=== PATIENT | female | born 1950 | race Caucasian/White ===

== ENCOUNTER 2017-04-02 02:18 | Inpatient (IN) ==
[2017-04-02] MEDS ORDERED: HYDROmorphone 2 MG/1 ML VIAL IV STA (03:00)
[2017-04-02] MEDS ORDERED: ONDANSETRON 4 MG/2 ML VIAL IV STA (03:00)
[2017-04-02] MEDS ORDERED: KETOROLAC 30 MG/1 ML VIAL IV STA (03:00)
[2017-04-02] MEDS ORDERED: ONDANSETRON 4 MG/2 ML VIAL ONE (03:13)
[2017-04-02] MEDS ORDERED: HYDROmorphone 2 MG/1 ML VIAL ONE (03:14)
[2017-04-02] MEDS ORDERED: KETOROLAC 30 MG/1 ML VIAL ONE (03:14)
[2017-04-02 03:36] LABS: Basophils # 0.1 10*3/uL (0.0-0.2); Basophils % 0.4 % (0.0-0.8); Eosinophils % 0.3 % (0.00-10.9); Hemoglobin 12.7 GM/DL (12.0-16.0); Immature Granulocytes % 0.4 %; Immature Granulocytes Absolute 0.06 #; Lymphocytes % 14.4 % (21.3-54.2); Mean Corpuscular HGB Conc 34.3 GM/DL (32-36); Mean Corpuscular Hemoglobin 30 PG (27-34); Mean Corpuscular Volume 87.1 FL (87-102); Mean Platelet Volume 8.8 FL (9.6-12.0); Monocytes % 7.4 % (1.7-12.7); Neutrophils # 10.5 10*3/uL (1.4-7.4); Neutrophils % 77.1 % (38.7-73.9); Platelet Count 475 T/CUMM (130-400); Red Blood Count 4.25 MC/CUMM (3.8-5.5); Red Cell Distribution Width 12.5 % (9.3-17.3); White Blood Count 13.6 T/CUMM (4-12)
[2017-04-02 04:04] LABS: Albumin 3.8 G/DL (3.4-5.0); Bilirubin,Total 0.6 MG/DL (0.2-1.0); Calcium 8.9 MG/DL (8.5-10.1); Osmolality,Calculated 281.5 MOS/KG (273-304); Potassium 3.3 MMOL/L (3.5-5.1); Total Protein 6.9 G/DL (6.4-8.3)
[2017-04-02] MEDS ORDERED: KETOROLAC 30 MG/1 ML VIAL IV PRN (04:14)
[2017-04-02] MEDS: DEXTROSE 5% NACL 0.9% 1,000 ML IV SCH ×3 (07:07→22:50)
[2017-04-02] MEDS: OLMESARTAN 20 MG TABLET PO SCH (09:51)
[2017-04-02] MEDS: TAMSULOSIN 0.4 MG CAPSULE PO SCH (09:52)
[2017-04-02] MEDS: ESTROGENS (CONJ) 0.625 MG TABLET PO SCH (09:52)
[2017-04-02] MEDS: PANTOPRAZOLE 40 MG TABLET PO SCH (09:52)
[2017-04-02] MEDS: hydroCHLOROthiazide 25 MG TABLET PO SCH (09:52)
[2017-04-02] MEDS: predniSONE 10 MG TABLET PO SCH (09:52)
[2017-04-02] MEDS: amLODIPine 10 MG TABLET PO SCH (09:52)
[2017-04-02 11:14] LABS: Apearance,Urine CLOUDY (Clear); Bacteria,Urine Occasional /HPF (Few); Bilirubin,Urine Negative (Negative); Blood, Urine Small mg/dL (Negative); Glucose,Urine (UA) Negative (Negative); Ketones,Urine 5 mg/dL (Negative); Nitrite,Urine Positive (Negative); Protein,Urine 30 MG/DL; RBC,Urine 44 /HPF (0-4); Squamous Epithelial Cell,Urine Occasional /HPF (0-10); Uric Acid Crystals,Urine Many /HPF (<1); Urine Color Yellow (Yellow); Urine Urobilinogen < 2.0 EU/DL (0.2-1.0); WBC,Urine 554 /HPF (0-6)
[2017-04-02] MEDS: NITROFURANTOIN MACRO/MONO 100 MG CAPSULE PO SCH ×3 (13:35→20:22)
[2017-04-02] MEDS: HYDROmorphone 2 MG/1 ML VIAL IV PRN (17:41)
[2017-04-02] MEDS: ONDANSETRON 4 MG/2 ML VIAL IV PRN (17:42)
[2017-04-02] MEDS: KETOROLAC 30 MG/1 ML VIAL IV PRN (20:23)
[2017-04-03] MEDS: HYDROmorphone 2 MG/1 ML VIAL IV PRN ×2 (00:37→07:42)
[2017-04-03] MEDS: ONDANSETRON 4 MG/2 ML VIAL IV PRN (02:33)
[2017-04-03] MEDS: KETOROLAC 30 MG/1 ML VIAL IV PRN ×3 (02:35→21:45)
[2017-04-03] MEDS ORDERED: PROMETHAZINE 25 MG/1 ML VIAL IM PRN (08:48)
[2017-04-03] MEDS: PANTOPRAZOLE 40 MG TABLET PO SCH (09:21)
[2017-04-03] MEDS: predniSONE 10 MG TABLET PO SCH (09:21)
[2017-04-03] MEDS: TAMSULOSIN 0.4 MG CAPSULE PO SCH (09:21)
[2017-04-03] MEDS: ESTROGENS (CONJ) 0.625 MG TABLET PO SCH (09:21)
[2017-04-03] MEDS: NITROFURANTOIN MACRO/MONO 100 MG CAPSULE PO SCH (09:21)
[2017-04-03] MEDS: hydroCHLOROthiazide 25 MG TABLET PO SCH (09:22)
[2017-04-03] MEDS: OLMESARTAN 20 MG TABLET PO SCH (09:22)
[2017-04-03] MEDS: amLODIPine 10 MG TABLET PO SCH (09:22)
[2017-04-03] MEDS: ACETAMINOPHEN 325 MG TABLET PO PRN (12:47)
[2017-04-03] MEDS: GENTAMICIN INJ 120 MG in PREMIX 1 EACH IV SCH (12:47)
[2017-04-03] MEDS: DEXTROSE 5% NACL 0.9% 1,000 ML IV SCH (15:51)
[2017-04-03] MEDS ORDERED: POTASSIUM CHLORIDE 20 MEQ TABLET PO ONE (22:30)
[2017-04-04] MEDS: DEXTROSE 5% NACL 0.9% 1,000 ML IV SCH ×4 (00:40→16:37)
[2017-04-04] MEDS: ACETAMINOPHEN 325 MG TABLET PO PRN ×2 (00:43→15:46)
[2017-04-04] MEDS: HYDROmorphone 2 MG/1 ML VIAL IV PRN ×4 (00:44→23:05)
[2017-04-04 06:41] LABS: Basophils % 0.1 % (0.0-0.8); Eosinophils # 0.1 10*3/uL (0.0-0.87); Eosinophils % 0.6 % (0.00-10.9); Hematocrit 28.6 VOL% (35.7-47.0); Immature Granulocytes % 0.8 %; Immature Granulocytes Absolute 0.08 #; Lymphocytes # 0.7 10*3/uL (1.4-4.0); Lymphocytes % 7.5 % (21.3-54.2); Mean Corpuscular HGB Conc 33.6 GM/DL (32-36); Mean Corpuscular Hemoglobin 31 PG (27-34); Mean Corpuscular Volume 90.8 FL (87-102); Mean Platelet Volume 9.4 FL (9.6-12.0); Monocytes # 0.5 10*3/uL (0.11-0.8); Monocytes % 5.5 % (1.7-12.7); Neutrophils # 8.3 10*3/uL (1.4-7.4); Neutrophils % 85.5 % (38.7-73.9); Red Cell Distribution Width 13.3 % (9.3-17.3); White Blood Count 9.7 T/CUMM (4-12)
[2017-04-04 07:09] LABS: Calcium 7.6 MG/DL (8.5-10.1); Osmolality,Calculated 288.8 MOS/KG (273-304); Potassium 3.9 MMOL/L (3.5-5.1)
[2017-04-04 07:13] LABS: Hemoglobin 9.6 GM/DL (12.0-16.0); Platelet Count 263 T/CUMM (130-400); Red Blood Count 3.15 MC/CUMM (3.8-5.5)
[2017-04-04 07:40] LABS: Band Neutrophils 3 % (0-10); Burr Cells Slight; Eosinophils 1 % (0-10); Giant Platelets Few; Hypochromasia 1+; Lymphocytes 9 % (20-55); Platelet Estimate Adequate; Segmented Neutrophils 81 % (50-85); Total Cells Counted 100
[2017-04-04] MEDS: OLMESARTAN 20 MG TABLET PO SCH (08:45)
[2017-04-04] MEDS: predniSONE 10 MG TABLET PO SCH (08:45)
[2017-04-04] MEDS: ESTROGENS (CONJ) 0.625 MG TABLET PO SCH (08:45)
[2017-04-04] MEDS: PANTOPRAZOLE 40 MG TABLET PO SCH (08:45)
[2017-04-04] MEDS: amLODIPine 10 MG TABLET PO SCH (08:45)
[2017-04-04] MEDS: TAMSULOSIN 0.4 MG CAPSULE PO SCH (08:45)
[2017-04-04] MEDS: hydroCHLOROthiazide 25 MG TABLET PO SCH (08:46)
[2017-04-04] MEDS: CLORAZEPATE 7.5 MG TABLET PO SCH ×2 (08:46→20:46)
[2017-04-04] MEDS: GENTAMICIN INJ 120 MG in PREMIX 1 EACH IV SCH (09:35)
[2017-04-04] MEDS: NITROFURANTOIN MACRO/MONO 100 MG CAPSULE PO SCH (16:16)
[2017-04-04] MEDS ORDERED: PROPOFOL 200 MG/20 ML VIAL IV ONE (18:10)
[2017-04-04] MEDS ORDERED: ROCURONIUM 100 MG/10 ML VIAL IV ONE (18:10)
[2017-04-04] MEDS ORDERED: HYDROCORTISONE 100 MG VIAL ONE (18:10)
[2017-04-04] MEDS ORDERED: PROPOFOL 500 MG/50 ML BOTTLE IV ONE (18:10)
[2017-04-04] MEDS ORDERED: fentaNYL 100 MCG/2 ML VIAL ONE (18:10)
[2017-04-04] MEDS ORDERED: MIDAZOLAM 2 MG/2 ML VIAL ONE (18:10)
[2017-04-04] MEDS ORDERED: NEOSTIGMINE 10 MG/10 ML VIAL ONE (18:11)
[2017-04-04] MEDS ORDERED: GLYCOPYRROLATE 0.4 MG/2 ML VIAL ONE (18:11)
[2017-04-04] MEDS ORDERED: ONDANSETRON 4 MG/2 ML VIAL ONE (18:11)
[2017-04-05] MEDS: HYDROmorphone 2 MG/1 ML VIAL IV PRN (04:10)
[2017-04-05] MEDS: DEXTROSE 5% NACL 0.9% 1,000 ML IV SCH ×2 (04:13→08:11)
[2017-04-05] MEDS: ESTROGENS (CONJ) 0.625 MG TABLET PO SCH (08:10)
[2017-04-05] MEDS: CLORAZEPATE 7.5 MG TABLET PO SCH (08:10)
[2017-04-05] MEDS: PANTOPRAZOLE 40 MG TABLET PO SCH (08:10)
[2017-04-05] MEDS: predniSONE 10 MG TABLET PO SCH (08:10)
[2017-04-05] MEDS: NITROFURANTOIN MACRO/MONO 100 MG CAPSULE PO SCH (08:11)
[2017-04-05] MEDS: hydroCHLOROthiazide 25 MG TABLET PO SCH (08:23)
[2017-04-05] MEDS: amLODIPine 10 MG TABLET PO SCH (08:23)
[2017-04-05] MEDS: OLMESARTAN 20 MG TABLET PO SCH (08:23)
[2017-04-05] MEDS: GENTAMICIN INJ 120 MG in PREMIX 1 EACH IV SCH (08:59)
[2017-04-05 11:51] VITALS: BP 140/77
== END 2017-04-05 13:24 | disposition home or self-care (01) | DRG 690 ==
LOC: N.ED 02:18 → N.EDINP 04:14 → N.2E 04:32
PROVIDERS: ADMIT Family Medicine; ATTEND Family Medicine